=== PATIENT | female | born 2000 ===

== ENCOUNTER 2024-11-19 19:39 | Emergency (ER) | payer MEDICAID ==
[~2024-11-19] VITALS: Ht 162.6 cm; Wt 65.0 kg
[2024-11-19] MEDS: normal saline 1000ml 1,000 ML IV ONE (22:09)
[2024-11-19] MEDS: diphenhydrAMINE 50 mg/ml inj IM ONE (22:11)
[2024-11-19] MEDS: metoclopramide 5 mg/ml inj IV ONE (22:11)
[2024-11-19] MEDS: ketorolac trometh 15mg/ml vial 15 MG/ML ML IV ONE (22:12)
[2024-11-19] MEDS ORDERED: BUTA-245 PO (22:35)
[2024-11-19 23:23] VITALS: BP 138/84; PULSE 84; RESP 16; TEMP 97.6; O2SAT 99
== END 2024-11-19 23:35 | disposition home or self-care (01) ==
LOC: ER 19:41
DX: R51.9 Headache, unspecified (principal)
CPT/HCPCS: 70450; 96361; 96372; 96374; 96375; 99285; J1200; J1885; J2765; J7030